=== PATIENT | male | born 1990 ===

== ENCOUNTER 2018-11-12 13:07 | Inpatient (IN) | payer MEDICAID, OTHER ==
[2018-11-12 14:07] LABS: BASO # 0.1 K/uL (0.0-0.2); BASO % 0.9 % (0.0-2.0); EOS # 0.1 K/uL (0.0-0.7); EOS % 1.3 % (0.0-4.0); HEMOGLOBIN 17.4 g/dL (12.0-18.0); LYMPH % 30.5 % (20.0-40.0); MEAN CELL VOLUME 85.3 fL (80.0-94.0); MEAN CORPUSCULAR HEMOGLOBIN 29.3 pg (27.0-31.0); MEAN CORPUSCULAR HGB CONC 34.4 g/dL (33.0-37.0); MEAN PLATELET VOLUME 8.5 fL (7.2-11.7); MONO # 0.4 K/uL (0.0-0.8); MONO % 6.2 % (0.0-10.0); NEUT # 3.9 K/uL (1.8-7.0); NEUT % 61.1 % (50.0-75.0); NRBC % 0.3 % (0.0-2.0); RBC 5.92 Mil/uL (4.40-5.90); RED CELL DISTRIBUTION WIDTH 12.9 % (11.5-14.5); WHITE BLOOD COUNT 6.4 K/uL (4.8-10.8)
[2018-11-12 14:18] LABS: ALB/GLOB RATIO 1.5 (1.0-2.1); ALBUMIN 5.1 g/dL (3.5-5.0); ALT/SGPT 232 U/L (21-72); AST/SGOT 129 U/L (17-59); BLOOD UREA NITROGEN 10 mg/dL (9-20); CALCIUM 9.4 mg/dl (8.6-10.4); GFR NON-AFRICAN AMERICAN > 60
--- NOTE | 2018-11-12 14:25 | C.PDOC ---
History Of Present Illness 28 y/o male presents to the ER requesting detox from ETOH. Patient states that his last drink was in the morning today. Patient denies having suicidal ideation, homicidal ideation, fever, chills, CP, SOB, nausea, and vomiting. Time Seen by Provider: 11/12/18 13:24 Chief Complaint (Nursing): Substance Abuse History Per: Patient History/Exam Limitations: no limitations Past Medical History Reviewed: Historical Data, Nursing Documentation, Vital Signs - Medical History PMH: No Chronic Diseases Surgical History: No Surg Hx Family History: States: No Known Family Hx - Social History Hx Alcohol Use: Yes Hx Substance Use: No - Immunization History Hx Tetanus Toxoid Vaccination: No Hx Influenza Vaccination: No Hx Pneumococcal Vaccination: No Review Of Systems Except As Marked, All Systems Reviewed And Found Negative. Constitutional: Negative for: Fever, Chills Cardiovascular: Negative for: Chest Pain Respiratory: Negative for: Shortness of Breath Gastrointestinal: Negative for: Nausea, Vomiting Psych: Negative for: Suicidal ideation Physical Exam - Physical Exam Additional Physical Exam Comments: Constitutional: No acute distress. Head: Normocephalic. Atraumatic. Eyes: PERRL. ENT: Moist mucous membranes. Neck: Supple. Cardiovascular: Regular rate. Radial pulse 2+ bilaterally. Chest: No tenderness. Respiratory: Clear to auscultation bilaterally. GI: Soft. Nontender. Nondistended. Back: No CVA tenderness. Musculoskeletal: No tenderness or swelling of extremities.z Skin: No rash. Neurologic: Alert, no focal deficit. ED Course And Treatment - Laboratory Results Result Diagrams: 11/12/18 13:51 11/12/18 13:51 Medical Decision Making Medical Decision Making: Plan: --Labs --UA Disposition - Disposition Disposition: HOSPITALIZED Disposition Time: 14:52 Condition: STABLE Forms: [employer] (Citizen Of [place]) - Clinical Impression Clinical Impression: Alcohol use disorder, severe, dependence - Scribe Statement The provider has reviewed the documentation as recorded by the Liam Garcia Provider Attestation: All medical record entries made by the Scribe were at my direction and personally dictated by me. I have reviewed the chart and agree that the record accurately reflects my personal performance of the history, physical exam, medical decision making, and the department course for this patient. I have also personally directed, reviewed, and agree with the discharge instructions and disposition.
[2018-11-12 14:29] LABS: URINE BACTERIA OCC (<OCC); URINE BILIRUBIN NEGATIVE (NEGATIVE); URINE BLOOD NEGATIVE (NEGATIVE); URINE CLARITY Clear (Clear); URINE COLOR Yellow (YELLOW); URINE GLUCOSE (UA) NORMAL (Normal); URINE LEUKOCYTE ESTERASE NEG Leu/uL (Negative); URINE PROTEIN NEGATIVE (NEGATIVE); URINE UROBILINOGEN NORMAL mg/dL (0.2-1.0)
[2018-11-12 14:48] LABS: BARBITURATES, UR NEGATIVE (NEGATIVE); BENZODIAZEPINES, UR NEGATIVE (NEGATIVE); OPIATES, UR NEGATIVE (NEGATIVE); PHENCYCLIDINE, UR NEGATIVE (NEGATIVE)
--- NOTE | 2018-11-12 17:51 | PCM.BM ---
<AdelaKathya - Last Filed: 11/12/18 17:49> Treatment Plan Problems - Problems identified on initial assessmt Ineffective Health Maintenance Date Initiated: 11/12/18 Time Initiated: 17:49 Assessment reference: NA Status: Active Treatment assets and liabiliti Patient Assests: ADL independent, negotiates basic needs, cognitively intact Patient Liabilities: substance abuse (ETOH), other (DCP case) - Milieu Protocol Maintain good personal hygiene: daily Encourage regular showers, daily Remind patient to perform daily oral care, daily Assist patient to perform ADL's Conduct patient checks and document Observation sheet: Q15 minutes Maintain personal safety: every shift Educate patient to report safety concerns to staff, every shift Monitor environment for contraband/sharps Medication safety: Monitor for expected outcome, potential side effects: every shift, Assess barriers to learning: every shift, Assess readiness for medication education: every shift <Amelia Betancourt - Last Filed: 11/13/18 09:39> - Diagnosis (1) Alcohol use disorder, severe, dependence Status: Acute Interventions: 11/13/18 09:39 * Assess 7x/week regarding severity of withdrawal * Educate regarding risks, benefits, side effects and alternatives of medications * Use Motivational Interviewing for abstinence * Use CBT for relapse prevention * Medication management for withdrawal symptoms * Encourage medication assisted treatment *
[2018-11-13] MEDS: Multiple Vitamins Tab PO SCH (09:22)
--- NOTE | 2018-11-13 09:39 | PCM.PSYCH ---
Initial Psychiatric Evaluation - Initial Psychiatric Evaluation Type of Admission: Voluntary Legal Status: Capacity Chief Complaint (in patient's own words): "Alcohol" History of Present Illness and Precipitating Events: The patient was seen, chart reviewed and case discussed. This is a 28-year-old male, single with 1 child who is 3 years old and with her mother. 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 He lives with his uncle and uncle's in [place]. He is here for alcohol detox; he drinks several shots and 6-8 beers every day. He started when he was 19 years and this year it got "out of control." This is his first detox. He has not gone to AA or rehab. He denies drug use and he is not a smoker. He feels very anxious denies suicidal ideation. Past psychiatric: No treatment or suicide attempts Medical history: GI problems Family psych history: Denies Current Medications: Active Medications Generic Name Dose Route Start Last Admin Trade Name Freq PRN Reason Stop Dose Admin Clonidine HCl 0.1 mg 11/12/18 18:41 11/12/18 22:05 Catapres PO 0.1 mg Q4H PRN Administration Symptoms of alcohol withdrawl Folic Acid 1 mg 11/13/18 10:00 11/13/18 09:22 Folic Acid PO 1 mg DAILY [place] Administration Gabapentin 300 mg 11/13/18 10:00 11/13/18 09:22 Neurontin PO 300 mg BID [place] Administration Hydroxyzine HCl 50 mg 11/12/18 21:26 11/12/18 22:06 Atarax PO 50 mg Q6H PRN Administration Anxiety Ibuprofen 600 mg 11/12/18 21:26 Motrin Tab PO Q6H PRN Pain, moderate (4-7) Influenza Virus Vaccine 60 mcg 11/15/18 10:00 Fluzone Quad [id number] IM 11/15/18 10:01 .ONCE ONE Lorazepam 1 mg 11/12/18 18:41 Ativan PO Q4H PRN Symptoms of alcohol withdrawl Lorazepam 2 mg 11/12/18 22:00 11/13/18 09:22 Ativan PO 11/17/18 21:59 2 mg Q6H [place] Administration Taper Multivitamins 1 tab 11/13/18 10:00 11/13/18 09:22 Hexavitamin PO 1 tab DAILY [place] Administration Pneumococcal Polyvalent Vaccine 0.5 ml 11/15/18 10:00 Pneumovax 23 Vaccine IM 11/15/18 10:01 .ONCE ONE Thiamine HCl 100 mg 11/13/18 10:00 11/13/18 09:22 Vitamin B1 Tab PO 100 mg DAILY [place] Administration Trazodone HCl 50 mg 11/12/18 21:20 11/12/18 22:05 Desyrel PO 50 mg HS PRN Administration Insomnia Past Psychiatric History - Past Psychiatric History Previous Treatment History: None Pertinent Medical Hx (Current Medical&Sleep Prob, Allergies): Allergies Allergy/AdvReac Type Severity Reaction Status Date / Time No Known Allergies Allergy Verified 11/12/18 13:24 No Known Home Med 11/12/18 Review of Systems - Neurological Neurological: UNREMARKABLE - Psychiatric Psychiatric: Abnormal Sleep Pattern, Anxiety, Difficulty Concentrating. absent: Hallucinations, Homicidal Ideation, Paranoia, Suicidal Ideation Mental Status Examination - Personal Presentation Personal Presentation: Looks stated age - Affect Affect: Constricted - Motor Activity Motor Activity: Calm - Reliability in Providing Information Reliability in Providing Information: Good - Speech Speech: Organized (All) - Mood Mood: Anxious - Formal Thought Process Formal Thought Process: No Impairment - Cognitive Functions Orientation: Person, Place, Situation, Time Sensorium: Alert Attention/Concentration: Easily distracted Estimate of Intelligence: Average Judgement: Intact, as evidence by: Insight regarding need for hospitalization Memory: Recent intact, as evidence by: Ability to recall events of the day, Remote intact, as evidenced by: Abilit to recall sig. life events - Risk Risk: Withdrawal, Diminished functioning - Strength & Assets Inventory Strength & Assets Inventory: Family support, Employment history, Cooperative - Limitations Limitations: Other DSM 5 DX - DSM 5 DSM 5 Diagnosis: Alcohol withdrawal Alcohol use disorder, severe Anxiety disorder unspecified - Recommended/Plan of Treatment Treatment Recommendations and Plan of Treatment: Taper with lorazepam because his liver is impaired Gabapentin for augmentation As needed medications All risks, benefits and alternatives of the meds discussed, and the pt agreed and understood. Attend groups and activities Supportive therapy and psychoeducation [place] for abstinence CBT for relapse prevention Encourage MAT Refer to rehab or IOP, and self-help groups Teach healthy lifestyle methods, i.e. diet, exercise, meditation Smoking cessation with [place] Nicotine patch if needed 34 min Projected ELOS: 4-5 days Prognosis: Good with treatment - Smoking Cessation Smoking Cessation Initiated: No Reason for not providing: No smoking
[2018-11-14] MEDS: Multiple Vitamins Tab PO SCH (09:51)
[2018-11-15] MEDS: Multiple Vitamins Tab PO SCH (09:55)
[2018-11-15] MEDS ORDERED: Pneumococcal 23-Valent Vaccine IM ONE (10:00)
[2018-11-15] MEDS ORDERED: Influenza Vaccine 60 MCG/0.5 ML SYR (3 yr & up) IM ONE (10:00)
--- NOTE | 2018-11-15 13:38 | PCM.PYCHPN ---
Psychiatric Progress Note - Psychiatric Progress Note Patient seen today, length of contact: 16 min Patient Chief Complaint: "I'm better" Problems Identified/Issues Discussed: The pt is seen, chart reviewed, case discussed with staff. Support and psychoeducation given, CBT and [place] used briefly No new symptoms reported, improving slowly and needs more time No SEs from medications, risks discussed. After care discussed - he wants to leave tomorrow Medication Change: Yes (detox changes ) Medical Record Reviewed: Yes Mental Status Examination - Cognitive Function Orientation: Person, Place, Situation, Time Memory: Impaired Attention: WNL Concentration: WNL Association: WNL Fund of Knowledge: WNL - Mood Mood: Anxious - Affect Affect: Constricted - Speech Speech: Appropriate - Formal Thought Process Formal Thought Process: No Impairment - Suicidal Ideation Suicidal Ideation: No - Homicidal Ideation Homicidal Ideation: No Goal/Treatment Plan - Goal/Treatment Plan Need for Continued Stay: Discharge may exacerbated symptoms, Severe functional impairment Progress Toward Problem(s) and Goals/Treatment Plan: Taper with lorazepam because his liver is impaired Gabapentin for augmentation As needed medications All risks, benefits and alternatives of the meds discussed, and the pt agreed and understood. Attend groups and activities Supportive therapy and psychoeducation [place] for abstinence CBT for relapse prevention Encourage MAT Refer to rehab or IOP, and self-help groups Teach healthy lifestyle methods, i.e. diet, exercise, meditation Smoking cessation with [place] Nicotine patch if needed Estimated Date of D/C: 11/16/18
[2018-11-15 20:25] VITALS: O2SAT 97
[2018-11-16] MEDS: Multiple Vitamins Tab PO SCH (09:28)
[2018-11-16 10:03] VITALS: BP 140/85; PULSE 110; RESP 16; TEMP 98.3
--- NOTE | 2018-11-16 10:54 | PCM.PYCHDC ---
Mental Status Examination - Mental Status Examination Orientation: Person, Place, Situation, Time Memory: Intact Mood: Neutral Affect: Constricted Speech: Soft Attention: WNL Concentration: WNL Association: WNL Fund of Knowledge: WNL Formal Thought Process: No Impairment Description of patient's judgement and insight: good, fair Psychotic Thoughts and Behaviors: denies any AVH Suicidal Ideation: No Current Homicidal Ideation?: No Discharge Summary - Discharge Note Reason for Hospitalization: The patient was seen, chart reviewed and case discussed. This is a 28-year-old male, single with 1 child who is 3 years old and with her mother. 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 He lives with his uncle and uncle's in [place]. He is here for alcohol detox; he drinks several shots and 6-8 beers every day. He started when he was 19 years and this year it got "out of control." This is his first detox. He has not gone to AA or rehab. He denies drug use and he is not a smoker. He feels very anxious denies suicidal ideation. Past psychiatric: No treatment or suicide attempts Consultations:: List each consultation separately and include: 1. Reason for request. 2. Findings. 3. Follow-up Summary of Hospital Course include:: 1. Description of specific treatment plan utilized for patients during their course of treatmen. 2. Summarize the time- course for resolution of acute symptoms and/or regressed behaviors. 3. Describe issues identified and worked on during hospitalization. 4. Describe medication utilized. 5. Describe medical problems identified and treated. 6. Reassessment of suicide risk - Final Diagnosis (DSM 5) Condition upon Discharge: STABLE DSM 5: Alcohol withdrawal Alcohol use disorder, severe Anxiety disorder unspecified Disposition: HOME/ ROUTINE Prescriptions/Medication Reconciliation: Gabapentin [Neurontin] 300 mg PO BID #60 cap traZODone [Desyrel] 50 mg PO HS PRN #30 tab PRN Reason: Insomnia
== END 2018-11-16 11:30 | disposition home or self-care (01) | DRG 775 ==
LOC: C.ER 13:07 → C.7D 17:32
PROVIDERS: ADMIT Psychiatry & Neurology Psychiatry; ATTEND Psychiatry & Neurology Psychiatry
PROC: HZ2ZZZZ Detoxification Services for Substance Abuse Treatment (ICD-10-PCS; principal; 2018-11-12)
PROC: 3E02340 Introduction of Influenza Vaccine into Muscle, Percutaneous Approach (ICD-10-PCS; 2018-11-15)
PROC: 3E0234Z Introduction of Serum, Toxoid and Vaccine into Muscle, Percutaneous Approach (ICD-10-PCS; 2018-11-15)
DX: F10.230 Alcohol dependence with withdrawal, uncomplicated (principal); F41.9 Anxiety disorder, unspecified; Z23 Encounter for immunization